=== PATIENT | male | born 1995 | race Caucasian/White ===

== ENCOUNTER 2017-12-18 02:55 | Emergency (ER) | payer BC ==
[2017-12-18] MEDS ORDERED: DIPH,PERTUS(ACELL)TETVAC-LF 0.5 ML VIAL IM ONE (03:18)
[2017-12-18] MEDS ORDERED: IBUPROFEN 600 MG TAB PO STA (03:18)
--- NOTE | 2017-12-18 03:23 | ED ---
Fall HPI - General Chief Complaint: Fall Stated Complaint: Fall, facial injury, wrist injury Time Seen by Provider: 12/18/17 03:06 Source: patient Mode of arrival: ambulatory - History of Present Illness Initial Comments: 21-year-old left-handed male patient presents to the emergency department today for evaluation of facial injury and left hand injury. Patient states approximately 45 minutes ago he was running down the sidewalk when he tripped over his boots and fell face first into a pole. Patient states he is having severe pain to the left hand and thumb. Patient states he is unable to move the thumb. He denies any numbness or tingling to the thumb. Denies any previous thumb injury. Patient states that he did have epistaxis which has not resolved. Patient states he is not having any significant pain to the face. He denies any loss of consciousness with the injury. Denies any nausea or vomiting. Denies any blurred or double vision. Patient denies any headache, neck pain, back pain, chest pain, shortness of breath, dizziness, weakness, abdominal pain, nausea, vomiting, or difficulties with bowel movements or urination. States his last tetanus vaccine was 7 years ago. - Related Data Previous Rx's Medication Instructions Recorded Ibuprofen [Motrin] 600 mg PO Q8HR PRN #30 tab 12/18/17 Allergies Allergy/AdvReac Type Severity Reaction Status Date / Time amoxicillin Allergy Rash/Hives Verified 12/18/17 03:07 Review of Systems ROS Statement: Those systems with pertinent positive or pertinent negative responses have been documented in the HPI. ROS Other: All systems not noted in ROS Statement are negative. Past Medical History Past Medical History: No Reported History History of Any Multi-Drug Resistant Organisms: None Reported Past Surgical History: No Surgical Hx Reported Past Psychological History: No Psychological Hx Reported Smoking Status: Never smoker Past Alcohol Use History: Occasional Past Drug Use History: None Reported General Exam Limitations: no limitations General appearance: alert, in no apparent distress, appears intoxicated, other ( This is a well-developed, well-nourished adult male patient in no acute distress. Vital signs upon presentation are temperature 98.4F, pulse 84, respirations 20, blood pressure 132/85, pulse ox 98% on room air.) Head exam: Present: atraumatic, normocephalic, normal inspection Eye exam: Present: normal appearance, PERRL, EOMI. Absent: scleral icterus, conjunctival injection, nystagmus, periorbital swelling, periorbital tenderness ENT exam: Present: normal oropharynx, mucous membranes moist, TM's normal bilaterally, other (Patient has nasal swelling and ecchymosis. Patient has dried, crusted blood to the bilateral nares. There is no evidence of septal hematoma. Bleeding is stopped.). Absent: normal exam Neck exam: Present: normal inspection, full ROM, other (Nontender, no step-off, no deformity to firm midline palpation of the posterior cervical spine. Full range of motion without pain or limitation.). Absent: tenderness, meningismus, lymphadenopathy Respiratory exam: Present: normal lung sounds bilaterally. Absent: respiratory distress, wheezes, rales, rhonchi, stridor Cardiovascular Exam: Present: regular rate, normal rhythm, normal heart sounds. Absent: systolic murmur, diastolic murmur, rubs, gallop, clicks GI/Abdominal exam: Present: soft, normal bowel sounds. Absent: distended, tenderness, guarding, rebound, rigid Extremities exam: Present: tenderness (Tenderness over the left first MCP joint. Skin to the left hand is pink, warm, and dry. Cap refills less than 3 seconds. Radial pulses 2+ and equal bilaterally.), normal capillary refill. Absent: normal inspection, full ROM (Patient unable to move the left thumb.), pedal edema, joint swelling, calf tenderness Back exam: Present: normal inspection, other (Nontender, no step-off, no deformity to firm midline palpation of the thoracic and lumbar vertebrae. Full range of motion without pain or limitation.). Absent: vertebral tenderness Neurological exam: Present: alert, oriented X3, CN II-XII intact Psychiatric exam: Present: normal affect, normal mood Skin exam: Present: warm, dry, intact, normal color. Absent: rash Course Vital Signs 12/18/17 03:03 Temperature 98.4 F Pulse Rate 84 Respiratory 20 Rate Blood Pressure 132/85 O2 Sat by Pulse 98 Oximetry Medical Decision Making - Medical Decision Making 21-year-old male patient presented to the emergency department today for evaluation of left hand pain and facial injury after sustaining a fall. Patient does admit to drinking alcohol today. Physical examination did reveal an abrasion and soft tissue swelling about the nasal bones. Patient also had decreased range of motion and tenderness over the first MCP joint on the left hand. CT of the brain, C-spine, and facial bones were obtained and showed no acute fractures or other intracranial abnormalities. Patient did have x-ray of the left hand which did show a fracture dislocation of the first metacarpal. We did perform reduction of the joint without anesthesia, patient tolerated this very well. Repeat x-ray was obtained and showed interval reduction of the dislocation with near anatomic alignment. Does show a small avulsion fracture as well. Patient was placed in a thumb spica splint and instructed to follow- up with the hand surgeon for further evaluation. He is educated regarding ice and elevation. Given ibuprofen for pain control. Return parameters discussed in detail. He verbalizes understanding and agrees with this plan. - Radiology Data Radiology results: report reviewed, image reviewed CT of the facial bones without contrast was obtained. Findings show no facial bone fractures. Soft tissues are unremarkable. Prominent bilateral cervical chain lymph nodes, likely reactive. Unremarkable orbits. Mild mucosal thickening of the paranasal sinuses. No air-fluid levels. Impression by Dr. Arroyo shows no acute findings. CT of the brain and C-spine was obtained without contrast. Report was reviewed in its entirety. Impression by Dr. Arroyo shows no acute findings. 3 views of the left hand were obtained. Bones and joints show fracture dislocation of the first basal carpometacarpal joint with lateral displacement of the metacarpal relative to the trapezium. There is a small osseous density adjacent to the proximal margin of the first metacarpal represents an avulsion fracture from an unknown donor site, possibly the trapezium. Soft tissues are unremarkable with no radiopaque foreign body. Incidental note is made of negative ulnar variance. Impression by Dr. Ramsey shows lateral dislocation of the first basal carpometacarpal joint with avulsion fracture evident by a small osseous density adjacent to the proximal metacarpal. The trapezium is also likely donor site this regular. Postreduction x-ray of the left hand was obtained. Bones and joints showed near anatomic alignment of the previously seen dislocation of the first CMC joint. There is small calcifications at the base of the first metacarpal which may represent a tiny avulsion fracture. Mild soft tissue swelling noted about the first and second digits. No radiopaque foreign body. Near anatomic alignment of the previously seen dislocation of the first MC joint. There is a small calcifications at the base of the first metacarpal which may represent a tiny avulsion fracture. Report is by Dr. Arroyo. Disposition Clinical Impression: Dislocation of finger, metacarpal joint, closed Narrative: First metacarpal carpal dislocation; Avulsion fracture of the left trapezium. Disposition: HOME SELF-CARE Condition: Good Instructions: Head Injury (ED), Finger Dislocation (ED), Facial Contusion (ED) Additional Instructions: Apply ice to the painful areas. Leave splint in place and to follow-up with orthopedics. Take medication as needed for pain. Return here immediately for any new, worsening, or concerning symptoms. Prescriptions: Ibuprofen [Motrin] 600 mg PO Q8HR PRN #30 tab PRN Reason: Pain Is patient prescribed a controlled substance at d/c from ED?: No Referrals: Charles Garzon DO [Doctor of Osteopathic Medicine] - 1-2 days Time of Disposition: 04:41
--- NOTE | 2017-12-18 04:15 | CT ---
EXAM: CT Head Without Intravenous Contrast CLINICAL HISTORY: Pain TECHNIQUE: Axial computed tomography images of the head/brain without intravenous contrast. CTDI is 57.4 mGy and DLP is 1081.6 mGy-cm. This CT exam was performed using one or more of the following dose reduction techniques: automated exposure control, adjustment of the mA and/or kV according to patient size, and/or use of iterative reconstruction technique. COMPARISON: No relevant prior studies available. FINDINGS: Brain: No acute infarct, hemorrhage, mass or edema. No significant white matter disease. Ventricles: Unremarkable. No ventriculomegaly. Bones/joints: Unremarkable. No acute fracture. Soft tissues: Unremarkable. Sinuses: Minimal mucosal thickening of the paranasal sinuses. Mastoid air cells: Unremarkable as visualized. No mastoid effusion. IMPRESSION: No acute findings. EXAM: CT Cervical Spine Without Intravenous Contrast CLINICAL HISTORY: Pain TECHNIQUE: Axial computed tomography images of the cervical spine without intravenous contrast. CTDI is 23.50 mGy and DLP is 422 mGy-cm. This CT exam was performed using one or more of the following dose reduction techniques: automated exposure control, adjustment of the mA and/or kV according to patient size, and/or use of iterative reconstruction technique. COMPARISON: No relevant prior studies available. FINDINGS: Vertebrae: No acute fracture or traumatic malalignment. Straightening of the normal cervical lordosis, likely positional. Discs/spinal canal/neural foramina: No acute findings. No spinal canal stenosis. Soft tissues: Unremarkable. Lung apices: Unremarkable as visualized. IMPRESSION: No acute findings.
--- NOTE | 2017-12-18 04:17 | CT ---
EXAM: CT Maxillofacial Without Intravenous Contrast CLINICAL HISTORY: Pain TECHNIQUE: Axial computed tomography images of the face without intravenous contrast. CTDI is 30.60 mGy and DLP is 514.1 mGy-cm. This CT exam was performed using one or more of the following dose reduction techniques: automated exposure control, adjustment of the mA and/or kV according to patient size, and/or use of iterative reconstruction technique. COMPARISON: No relevant prior studies available. FINDINGS: Bones/joints: No facial bone fracture identified. Soft tissues: Unremarkable. Lymph nodes: Prominent bilateral cervical chain lymph nodes, likely reactive. Orbits: Unremarkable. Sinuses: Mild mucosal thickening of the paranasal sinuses. No air- fluid levels. IMPRESSION: No acute findings.
--- NOTE | 2017-12-18 04:24 | XR ---
EXAM: XR Left Hand Complete, 3 or More Views CLINICAL HISTORY: Postreduction TECHNIQUE: Frontal, lateral and oblique views of the left hand. COMPARISON: No relevant prior studies available. FINDINGS: Bones/joints: Near anatomic alignment of the previously seen dislocation of the first CMC joint.. There is small calcification seen at the base of the first metacarpal which may represent a tiny avulsion fracture. Soft tissues: Mild soft tissue swelling noted about the first and second digits. No radiopaque foreign body. IMPRESSION: 1. Near anatomic alignment of the previously seen dislocation of the first CMC joint. 2. There is small calcification seen at the base of the first metacarpal which may represent a tiny avulsion fracture.
--- NOTE | 2017-12-18 04:25 | XR ---
EXAM: XR Left Hand Complete, 3 or More Views CLINICAL HISTORY: ITS.REASON XR Reason: Pain TECHNIQUE: Frontal, lateral and oblique views of the left hand. COMPARISON: No relevant prior studies available. FINDINGS: Bones/joints: Fracture dislocation the first basal carpal metacarpal joint with lateral displacement of the metacarpal relative to the trapezium small osseous density adjacent to the proximal margin of the first metacarpal represents an avulsion fracture from an unknown donor site, possibly the trapezium Soft tissues: Unremarkable. No radiopaque foreign body. Incidental note is made of negative ulnar variance IMPRESSION: Lateral Dislocation first basal carpometacarpal joint with avulsion fracture evident by a small osseous density adjacent to the proximal metacarpal. The trapezium is the most likely donor site for this fragment
[2017-12-18 05:05] VITALS: BP 125/69; PULSE 96; RESP 18; TEMP 98.8
== END 2017-12-18 05:00 | disposition home or self-care (01) ==
LOC: EC 02:55
DX: S62.232A Other displaced fracture of base of first metacarpal bone, left hand, initial encounter for closed fracture (principal); S00.33XA Contusion of nose, initial encounter; Z88.0 Allergy status to penicillin; Z23 Encounter for immunization; W18.09XA Striking against other object with subsequent fall, initial encounter; Y93.02 Activity, running; Y92.480 Sidewalk as the place of occurrence of the external cause
CPT/HCPCS: 26670; 70450; 70486; 72125; 90471; 90715; 99284